=== PATIENT | female | born 1955 | race Caucasian/White ===

== ENCOUNTER 2017-11-04 08:51 | Emergency (ER) | payer BC ==
--- NOTE | 2017-11-04 09:43 | UC ---
Respiratory Complaint HPI - HPI Summary HPI Summary: 3-4 days of chills, chest pain, cough, achiness and headache. No fever. - History of Current Complaint Stated Complaint: RESPIRATORY Time Seen by Provider: 11/04/17 09:33 Hx Obtained From: Patient, Family/Registered Dietitian Hx Last Menstrual Period: ~1999 Onset/Duration: Gradual Onset, Lasting Days, Still Present Timing: Constant Severity Initially: Moderate Severity Currently: Moderate Character: Cough: Nonproductive Aggravating Factors: Deep Breaths, Recumbent Position Alleviating Factors: Upright Position, Spontaneous Resolution Associated Signs And Symptoms: Positive: Chills, Pleuritic Chest Pain, URI, Nasal Congestion, Hoarseness. Negative: Hemoptysis, Calf Pain, Calf Swelling - Allergies/Home Medications Allergies/Adverse Reactions: Allergies Allergy/AdvReac Type Severity Reaction Status Date / Time No Known Allergies Allergy Verified 05/13/16 18:24 Home Medications: Home Medications Cholecalciferol TAB* [Vitamin D TAB*] 11/04/17 [History] PMH/Surg Hx/FS Hx/Imm Hx Previously Healthy: No - htn. SHe denies chronic lung conditions. - Surgical History Surgical History: Yes Surgery Procedure, Year, and Place: hysterectomy cholecystectomy Bilateral arms and hands ganglion cystsT&Aear growth removal. TUBAL LIGATION - Family History Known Family History: Positive: Hypertension - Social History Alcohol Use: Occasionally Substance Use Type: None Smoking Status (MU): Never Smoked Tobacco - Immunization History Most Recent Tetanus Shot: UNKNOWN Review of Systems Constitutional: Chills, Fatigue Respiratory: Cough Cardiovascular: Chest Pain All Other Systems Reviewed And Are Negative: Yes Physical Exam Triage Information Reviewed: Yes Appearance: Well-Appearing - appears to have malaise but non toxic., No Pain Distress, Well-Nourished Vital Signs Reviewed: Yes Eye Exam: Normal Eyes: Positive: Conjunctiva Clear ENT: Positive: Hearing grossly normal, Pharynx normal, Nasal congestion, TMs normal, Uvula midline. Negative: TM bulging, TM dull, TM red, Tonsillar swelling, Tonsillar exudate, Trismus, Muffled voice Neck: Positive: Supple, Nontender, No Lymphadenopathy Respiratory: Positive: Lungs clear, Normal breath sounds, No respiratory distress, No accessory muscle use, Rhonchi. Negative: Respiratory distress, Decreased breath sounds, Accessory muscle use, Crackles, Wheezing Cardiovascular: Positive: No Murmur, Pulses Normal, Brisk Capillary Refill Abdomen Description: Positive: No Organomegaly, Soft. Negative: Distended, Guarding Musculoskeletal: Positive: ROM Intact, No Edema Neurological: Positive: Alert, Muscle Tone Normal. Negative: Fatigued Psychological: Positive: Age Appropriate Behavior Skin: Positive: rashes Respiratory Course/Dx - Course Course Of Treatment: Felipe rhonchi. 3-4 days of symptoms. No rales and no hemoptysis. This is most c/w influenza and viral pneumonia. SHe will return if symptoms worsen. - Differential Dx/Diagnosis Provider Diagnoses: influenza Discharge - Discharge Plan Condition: Good Disposition: HOME Prescriptions: Oseltamivir CAP* [Tamiflu CAP*] 75 mg PO BID #10 cap Patient Education Materials: Influenza (ED) Referrals: Shawna Castro MD [Primary Care Provider] - Additional Instructions: Try decongestants and tylenol. Return for any worsening.
[2017-11-04 09:51] VITALS: BP 148/64
--- NOTE | 2017-11-04 10:06 | RAD ---
HISTORY: Cough, chest pain, pneumonia COMPARISONS: June 27, 2003 VIEWS: 4: Frontal dual-energy and lateral views of the chest. FINDINGS: CARDIOMEDIASTINAL SILHOUETTE: The cardiomediastinal silhouette is normal. ALIS: The alis are normal. PLEURA: The costophrenic angles are sharp. No pleural abnormalities are noted. LUNG PARENCHYMA: There is minimal linear opacification of left lung base. ABDOMEN: The upper abdomen is clear. There is no subphrenic gas. BONES AND SOFT TISSUES: No bone or soft tissue abnormalities are noted. OTHER: None. IMPRESSION: MINIMAL LINEAR ATELECTASIS OF THE LEFT LUNG BASE.
== END 2017-11-04 10:25 | disposition home or self-care (01) ==
LOC: UCCORT 08:51
DX: J11.1 Influenza due to unidentified influenza virus with other respiratory manifestations (principal)
CPT/HCPCS: 71046; 87502; 99211; G0463

== ENCOUNTER 2018-01-11 20:09 | Emergency (ER) | payer BC ==
--- OUTSIDE RECORDS SUMMARY | 2018-01-11 20:37 | XMS REPORT ---
:1955 External Reference #:[id number] Author Organization [facility] Address [address] [place] [address] Phone [phone] Care Team Providers Name Role Phone Shawna Castro MD Care Team Information Internet Webmaster Unavailable Shawna Castro MD Primary Care Physician Unavailable Payers Type Date Identification Numbers Payment Provider Subscriber Commercial Policy Number: [id number] [facility] [employer] PayID: [id number] [address] [address] [place] [address] Problems Date Description Provider Status Onset: 12/09/2015 Mixed hyperlipidemia Active Onset: 12/05/2015 Adult health examination Shawna Castro M.D. Active Onset: 12/05/2015 Hyperlipidemia Shawna Castro M.D. Active Onset: 12/05/2015 Obesity Shawna Castro M.D. Active Onset: 01/10/2016 Vitamin D deficiency Shawna Castro M.D. Active Onset: 01/10/2016 Taking medication Shawna Castro M.D. Active Onset: 12/04/2016 Localized, primary osteoarthritis Shawna Castro M.D. Active Onset: 12/04/2016 Polyarthropathy Shawna Castro M.D. Active Onset: 12/19/2016 Shoulder joint pain Shawna Castro M.D. Active Onset: 12/19/2016 Knee pain Shawna Castro M.D. Active Onset: 12/19/2016 Abnormal glucose level Shawna Castro M.D. Active Onset: 06/16/2017 Otitis media Shawna Castro M.D. Active Onset: 06/16/2017 Acute sinusitis Shawna Castro M.D. Active Onset: 06/16/2017 Family problems Shawna Castro M.D. Active Onset: 10/14/2017 Elevated blood-pressure reading Shawna Castro M.D. Active without diagnosis of hypertension Onset: 10/14/2017 Incomplete emptying of bladder Shawna Castro M.D. Active Onset: 10/27/2017 Mixed urinary incontinence Luis Barillas M.D. Active Onset: 12/15/2017 Moderate recurrent major depression Nathanael Li M.D. Active Family History Date Family Member(s) Problem(s) Comments Father due to Suicide () Mother due to Colon Cancer () Mother Cancer First Brother Kidney Disease First Sister due to Septicemia () - age 68 First Sister Kidney Disease Social History Type Date Description Comments Marital Status Lives With Occupation Retired Cigarette Use Never Smoked Cigarettes ETOH Use 04/16/2016 Currently consumes alcohol socially Smoking Patient denies history of smoking Recreational Drug Use Denies Drug Use Daily Caffeine Does Not Consume Caffeine Allergies, Adverse Reactions, Alerts Date Description Reaction Status Severity Comments 12/05/2015 NKDA active Medications Medication Date Status Form Strength Qnty SIG Indications Ordering Provider Ibuprofen 200 Active Tablets 200mg 90tabs 1-2 tabs Andras 018 by mouth Gloria, three M.D. times a day as needed Vitamin D3 Active Tablets 5000Unit 180tab 2 By Andras 017 s Mouth Gloria, Every M.D. Day Valacyclovir 0 Active Tablets 1gm 4tabs 2 gm by Andras HCL 000 mouth Gloria, every 12 M.D. hours x 2 doses as needed cold sores Amoxicillin Hx Tablets 500mg 30tabs take 1 J01.90 Andras 017 - tablet Gloria, daily 3 M.D. 017 times a day for [address] Hx Tablets DR 375mg 60tabs 1 tablet Andras 017 - by mouth Gloria, twice a M.D. 018 day as needed for pain No Active Hx Unknown Medications 017 - [address] 03/30/[address] 375mg 30tabs 1 tablet M17.12 Andras 017 - by mouth Gloria, twice a M.D. day Meloxicam Hx Tablets 15mg 30tabs 1 by Lenny 016 - mouth Pom[place], every M.D. 017 day c food Phentermine HCL /0 Hx Capsules 37.5mg 30caps 1 tablet Andras 000 - by mouth Gloria, every M.D. day Atorvastatin /0 Hx Tablets 10mg 1 by Unknown Calcium 000 - mouth every day Valacyclovir 0 Hx Tablets 1gm 1 by Unknown HCL 000 - mouth three 017 times a day as needed Co Q-10 0 Hx Capsules 100mg 1 by Unknown 000 - mouth every day Vitamin D2 0 Hx Tablets 2000Unit 1 by Unknown 000 - mouth every day Vital Signs Date Vital Result Comment 12/15/2017 BP Systolic Sitting Right Arm 140 mmHg BP Diastolic Sitting Right Arm 80 mmHg Body Temperature 97.7 F Heart Rate 75 /min Respiratory Rate 18 /min Height 63 inches 5'3" Weight 270.00 lb BMI (Body Mass Index) 47.8 kg/m2 BSA (Body Surface Area) 2.20 m2 [place] body weight in kilograms 52 O2 % BldC Oximetry 95 % Ra 10/27/2017 BP Systolic 143 mmHg BP Diastolic 93 mmHg Body Temperature 97.5 F Heart Rate 89 /min Respiratory Rate 16 /min O2 % BldC Oximetry 95 % Pain Level 5 rt shoulder 10/14/2017 BP Systolic Sitting Right Arm 155 mmHg BP Diastolic Sitting Right Arm 85 mmHg Heart Rate 73 /min Height 63 inches 5'3" Weight 273.00 lb BMI (Body Mass Index) 48.4 kg/m2 BSA (Body Surface Area) 2.21 m2 [place] body weight in kilograms 52 O2 % BldC Oximetry 92 % ra 06/16/2017 BP Systolic Sitting Right Arm 149 mmHg lower arm BP Diastolic Sitting Right Arm 89 mmHg lower arm Body Temperature 98.6 F Heart Rate 80 /min Respiratory Rate 24 /min Weight 267.00 lb O2 % BldC Oximetry 92 % ra 03/24/2017 BP Systolic Sitting Left Arm 140 mmHg BP Diastolic Sitting Left Arm 75 mmHg Body Temperature 98.2 F Heart Rate 88 /min Respiratory Rate 14 /min Height 62.5 inches 5'2.50" Weight 263.25 lb BMI (Body Mass Index) 47.4 kg/m2 BSA (Body Surface Area) 2.16 m2 [place] body weight in kilograms 51 O2 % BldC Oximetry 96 % 12/19/2016 BP Systolic 138 mmHg BP Diastolic 70 mmHg Heart Rate 78 /min Respiratory Rate 16 /min Height 62.5 inches 5'2.50" Weight 265.00 lb BMI (Body Mass Index) 47.7 kg/m2 BSA (Body Surface Area) 2.17 m2 O2 % BldC Oximetry 97 % 12/04/2016 BP Systolic Sitting Right Arm 132 mmHg BP Diastolic Sitting Right Arm 72 mmHg Height 62.5 inches 5'2.50" Weight 262.50 lb BMI (Body Mass Index) 47.2 kg/m2 BSA (Body Surface Area) 2.16 m2 04/16/2016 BP Systolic Sitting Left Arm 138 mmHg BP Diastolic Sitting Left Arm 83 mmHg Heart Rate 76 /min Height 62.5 inches 5'2.50" Weight 262.00 lb BMI (Body Mass Index) 47.2 kg/m2 BSA (Body Surface Area) 2.16 m2 [place] body weight in kilograms 51 01/10/2016 BP Systolic 130 mmHg BP Diastolic 80 mmHg Heart Rate 76 /min Height 62.5 inches 5'2.50" Weight 252.00 lb BMI (Body Mass Index) 45.4 kg/m2 BSA (Body Surface Area) 2.12 m2 12/05/2015 BP Systolic 142 mmHg BP Diastolic 83 mmHg Heart Rate 83 /min Height 62.5 inches 5'2.50" Weight 250.00 lb BMI (Body Mass Index) 45.0 kg/m2 BSA (Body Surface Area) 2.11 m2 Results Test Date Test Result H/L Range Note Rapid Influenza A & 11/04/2017 Influenza A Molecular NEGATIVE Negative 1 B Molecular Influenza B Molecular POSITIVE Negative Ua RFX Micro & Culture II 10/23/2017 Urine Color YELLOW Yellow 2 Urine Clarity TURBID Clear 2 Urine Glucose - Dipstick NEGATIVE mg/dL Negative 2 Urine Bilirubin - Dipstick NEGATIVE Negative 2 Urine Ketone NEGATIVE mg/dL Negative 2 Urine Specific [place] 1.025 1.010-1.030 2 Urine Blood NEGATIVE Negative 2 Urine PH 6.0 Low 6.5-7.5 2 Urine Protein - Dipstick NEGATIVE mg/dL Negative 2 Urine Urobilinogen - Dipstick 0.2 E.U./dL 0.2-1.0 2 Urine Nitrite - Dipstick NEGATIVE Negative 2 Urine Leuk Esterase NEGATIVE Negative 2 Source: URINE, CLEAN CAT <SEE NOTE> 2, 3 Laboratory test finding 10/08/2017 LDL Cholesterol Direct 154 mg/dL 4 TSH (Thyroid Stimulating Horm) 4.60 mcIU/mL 0.34-5.60 Urinalysis Profile 10/08/2017 Urine Color Shara Urine Appearance Cloudy Urine Specific [place] 1.021 1.010-1.030 Urine pH 6.0 5-9 Urine Urobilinogen Negative Negative Urine Ketones Negative Negative Urine Protein Negative Negative Urine Leukocytes Negative Negative Urine Blood 1+ Negative Urine Nitrite Negative Negative Urine Bilirubin Negative Negative Urine Glucose Negative Negative Urine White Blood Cell Trace(0-5/hpf) Absent Urine Red Blood Cell 1+(3-5/hpf) Absent Urine Bacteria Absent Absent Urine Squamous Epithelial Cell Present Absent Laboratory test finding 10/08/2017 Vitamin D Total 25(Oh) 23.7 ng/mL 20- 50 Hemoglobin A1c 5.7 % High 4.0-5.6 5 HDL Cholesterol 54.3 mg/dL 6 Triglycerides 118 mg/dL 7 Comprehensive Metabolic Panel 10/08/2017 Sodium 138 mmol/L 133-145 Potassium 4.4 mmol/L 3.5-5.0 Chloride 105 mmol/L 101-111 Co2 Carbon Dioxide 25 mmol/L 22-32 Anion Gap 8 mmol/L 2-11 Glucose 105 mg/dL High 70-100 Blood Urea Nitrogen 22 mg/dL 6-24 Creatinine 0.67 mg/dL 0.51-0.95 BUN/Creatinine Ratio 32.8 High 8-20 Calcium 9.3 mg/dL 8.6-10.3 Total Protein 6.2 g/dL Low 6.4-8.9 Albumin 3.8 g/dL 3.2-5.2 Globulin 2.4 g/dL 2-4 Albumin/Globulin Ratio 1.6 1-3 Total Bilirubin 0.50 mg/dL 0.2-1.0 Alkaline Phosphatase 81 U/L 34-104 Alt 23 U/L 7-52 Ast 11 U/L Low 13-39 Egfr Non- 89.2 >60 Egfr 114.7 >60 8 CBS W/Automated Diff 10/08/2017 White Blood Count 5.6 10^3/uL 3.5-10.8 Red Blood Count 4.90 10^6/uL 4.0-5.4 Hemoglobin 14.0 g/dL 12.0-16.0 Hematocrit 42 % 35-47 Mean Corpuscular Volume 85 fL 80-97 Mean Corpuscular Hemoglobin 29 pg 27-31 Mean Corpuscular HGB Conc 34 g/dL 31-36 Red Cell Distribution Width 14 % 10.5-15 Platelet Count 206 10^3/uL 150-450 Mean Platelet Volume 9 um3 7.4-10.4 Abs Neutrophils 3.1 10^3/uL 1.5-7.7 Abs Lymphocytes 2.0 10^3/uL 1.0-4.8 Abs Monocytes 0.3 10^3/uL 0-0.8 Abs Eosinophils 0.1 10^3/uL 0-0.6 Abs Basophils 0.1 10^3/uL 0-0.2 Abs Nucleated RBC 0 10^3/uL Granulocyte % 55.4 % 38-83 Lymphocyte % 36.2 % 25-47 Monocyte % 5.8 % 1-9 Eosinophil % 1.5 % 0-6 Basophil % 1.1 % 0-2 Nucleated Red Blood Cells % 0 Laboratory test finding 06/15/2017 Thyroid Stim Hormone 3.90 uIU/mL 0.30- 4.20 9 Free T3 2.50 pg/mL 2.18-3.98 9 Free T4 0.91 ng/dL 0.76-1.46 9 Laboratory test 06/15/2017 Vitamin B1 179.2 nmol/L 66.5-200.0 9, 10 finding (Thiamine),WB Laboratory test 05/29/2017 Hemoglobin A1c 5.7 % Less than 6.0 11 finding LDL Cholesterol Direct 141 mg/dL 12 Folate 7.83 ng/mL >3.99 Vitamin B12 561 pg/mL 180-914 13 Laboratory test finding 05/29/2017 Magnesium 1.8 mg/dL Low 1.9-2.7 CMP Panel (14 Test) 05/29/2017 Sodium 139 mmol/L 133-145 Potassium 4.3 mmol/L 3.5-5.0 Chloride 107 mmol/L 101-111 Co2 Carbon Dioxide 26 mmol/L 22-32 Anion Gap 6 mmol/L 2-11 Glucose 100 mg/dL 70-100 Blood Urea Nitrogen 26 mg/dL High 6-24 Creatinine 0.71 mg/dL 0.51-0.95 BUN/Creatinine Ratio 36.6 High 8-20 Calcium 9.1 mg/dL 8.6-10.3 Total Protein 6.1 g/dL Low 6.4-8.9 Albumin 3.6 g/dL 3.2-5.2 Globulin 2.5 g/dL 2-4 Albumin/Globulin Ratio 1.4 1-3 Total Bilirubin 0.50 mg/dL 0.2-1.0 Alkaline Phosphatase 82 U/L 34-104 Alt 14 U/L 7-52 Ast 10 U/L Low 13-39 Egfr Non- 83.7 >60 Egfr 107.6 >60 14 CBC W/Auto Diff & PLT 05/29/2017 White Blood Count 5.7 10^3/uL 3.5- 10.8 Red Blood Count 4.85 10^6/uL 4.0-5.4 Hemoglobin 13.8 g/dL 12.0-16.0 Hematocrit 42 % 35-47 Mean Corpuscular Volume 86 fL 80-97 Mean Corpuscular Hemoglobin 28 pg 27-31 Mean Corpuscular HGB Conc 33 g/dL 31-36 Red Cell Distribution Width 14 % 10.5-15 Platelet Count 199 10^3/uL 150-450 Mean Platelet Volume 9 um3 7.4-10.4 Abs Neutrophils 3.2 10^3/uL 1.5-7.7 Abs Lymphocytes 2.0 10^3/uL 1.0-4.8 Abs Monocytes 0.3 10^3/uL 0-0.8 Abs Eosinophils 0.1 10^3/uL 0-0.6 Abs Basophils 0.1 10^3/uL 0-0.2 Abs Nucleated RBC 0 10^3/uL Granulocyte % 56.1 % 38-83 Lymphocyte % 36.0 % 25-47 Monocyte % 5.5 % 1-9 Eosinophil % 1.5 % 0-6 Basophil % 0.9 % 0-2 Nucleated Red Blood Cells % 0 Laboratory test finding 05/29/2017 Triglycerides 102 mg/dL 15 Laboratory test finding 05/29/2017 Vitamin D Total 25(Oh) 42.4 ng/mL 20- 50 HDL Cholesterol 51.4 mg/dL 16 Laboratory test finding 12/11/2016 Triglycerides 109 mg/dL 17 LDL Cholesterol Direct 155 mg/dL 18 Anti Nuclear Antibody 0.6 U 19 Laboratory test finding 12/11/2016 Vitamin D Total 25(Oh) 23.3 ng/mL Low 30-50 Uric Acid 4.2 mg/dL 2.3-6.6 Rheumatoid Factor <15 IU/mL <15 20 Creatine Kinase 55 U/L 10-223 HDL Cholesterol 49.0 mg/dL 21 Laboratory test finding 12/11/2016 Magnesium 1.9 mg/dL 1.9-2.7 Urinalysis Profile 12/11/2016 Urine Color Yellow Urine Appearance Clear Urine Specific [place] 1.028 1.010-1.030 Urine pH 5.0 5-9 Urine Urobilinogen Negative Negative Urine Ketones Negative Negative Urine Protein Negative Negative Urine Leukocytes Negative Negative Urine Blood Negative Negative Urine Nitrite Negative Negative Urine Bilirubin Negative Negative Urine Glucose Negative Negative Laboratory test finding 12/11/2016 Urine Culture SEE RESULT BELOW 22 CBS W/Automated Diff 12/11/2016 White Blood Count 5.6 10^3/uL 3.5-10.8 Red Blood Count 4.87 10^6/uL 4.0-5.4 Hemoglobin 13.7 g/dL 12.0-16.0 Hematocrit 41 % 35-47 Mean Corpuscular Volume 85 fL 80-97 Mean Corpuscular Hemoglobin 28 pg 27-31 Mean Corpuscular HGB Conc 33 g/dL 31-36 Red Cell Distribution Width 14 % 10.5-15 Platelet Count 201 10^3/uL 150-450 Mean Platelet Volume 9 um3 7.4-10.4 Abs Neutrophils 2.9 10^3/uL 1.5-7.7 Abs Lymphocytes 2.3 10^3/uL 1.0-4.8 Abs Monocytes 0.3 10^3/uL 0-0.8 Abs Eosinophils 0.1 10^3/uL 0-0.6 Abs Basophils 0 10^3/uL 0-0.2 Abs Nucleated RBC 0 10^3/uL Granulocyte % 51.5 % 38-83 Lymphocyte % 40.1 % 25-47 Monocyte % 5.8 % 1-9 Eosinophil % 1.9 % 0-6 Basophil % 0.7 % 0-2 Nucleated Red Blood Cells % 0 Comprehensive Metabolic Panel 12/11/2016 Sodium 140 mmol/L 133-145 Potassium 4.2 mmol/L 3.5-5.0 Chloride 107 mmol/L 101-111 Co2 Carbon Dioxide 26 mmol/L 22-32 Anion Gap 7 mmol/L 2-11 Glucose 102 mg/dL High 70-100 Blood Urea Nitrogen 30 mg/dL High 6-24 Creatinine 0.70 mg/dL 0.51-0.95 BUN/Creatinine Ratio 42.9 High 8-20 Calcium 9.2 mg/dL 8.6-10.3 Total Protein 6.2 g/dL Low 6.4-8.9 Albumin 3.8 g/dL 3.2-5.2 Globulin 2.4 g/dL 2-4 Albumin/Globulin Ratio 1.6 1-3 Total Bilirubin 0.50 mg/dL 0.2-1.0 Alkaline Phosphatase 85 U/L 34-104 Alt 16 U/L 7-52 Ast 12 U/L Low 13-39 Egfr Non- 85.1 >60 Egfr 109.4 >60 23 LDL Cholesterol Profile 05/20/2016 Triglycerides 112 mg/dL 24 Cholesterol 249 mg/dL 25 HDL Cholesterol 52.1 mg/dL 26 LDL Cholesterol 175 mg/dL 27 Laboratory test finding 05/20/2016 Vitamin D Total 25(Oh) 23.1 ng/mL Low 30-50 Creatine Kinase 44 U/L 10-223 Liver Function Tests 05/20/2016 Total Protein 6.3 g/dL Low 6.4-8.9 Albumin 3.8 g/dL 3.2-5.2 Globulin 2.5 g/dL 2-4 Albumin/Globulin Ratio 1.5 1-3 Total Bilirubin 0.50 mg/dL 0.2-1.0 Direct Bilirubin 0.10 mg/dL 0.03-0.18 Indirect Bilirubin 0.4 mg/dL 0.3-1.0 Alkaline Phosphatase 80 U/L 34-104 Alt 16 U/L 7-52 Ast 10 U/L Low 13-39 Laboratory test finding 05/20/2016 TSH (Thyroid Stimulating 4.20 mcIU/mL 0.34-5.60 Horm) LDL Cholesterol Direct 168 mg/dL 28 Laboratory test finding 01/09/2016 Glucose 91 mg/dL 70-100 Alt 20 U/L 7-52 Comprehensive Metabolic Panel 01/09/2016 Sodium 139 mmol/L 133-145 Potassium 4.4 mmol/L 3.5-5.0 Chloride 104 mmol/L 101-111 Co2 Carbon Dioxide 30 mmol/L 22-32 Anion Gap 5 mmol/L 2-11 Blood Urea Nitrogen 20 mg/dL 6-24 Creatinine 0.72 mg/dL 0.51-0.95 BUN/Creatinine Ratio 27.8 High 8-20 Calcium 9.4 mg/dL 8.6-10.3 Total Protein 6.6 g/dL 6.4-8.9 Albumin 4.1 g/dL 3.2-5.2 Globulin 2.5 g/dL 2-4 Albumin/Globulin Ratio 1.6 1-3 Total Bilirubin 0.60 mg/dL 0.2-1.0 Alkaline Phosphatase 85 U/L 34-104 Ast 12 U/L Low 13-39 Egfr Non- 82.6 >60 Egfr 106.3 >60 29 Laboratory test finding 01/09/2016 Vitamin D Total 25(Oh) 22.5 ng/mL Low 30-50 LDL Cholesterol Direct 164 mg/dL 30 TSH (Thyroid Stimulating Horm) 4.56 ?IU/mL 0.34-5.60 Free T3 3.20 pg/mL 2.5-3.9 Free T4 0.73 ng/dL 0.61-1.12 Laboratory test finding 01/09/2016 Homocysteine 10 mcmol/L 31 Urine Screen 01/09/2016 Urine Color Yellow Urine Appearance Cloudy Urine Specific [place] 1.017 1.010-1.030 Urine pH 6.0 5-9 Urine Urobilinogen Negative Negative Urine Ketones Negative Negative Urine Protein Negative Negative Urine Leukocytes Negative Negative Urine Blood Negative Negative Urine Nitrite Negative Negative Urine Bilirubin Negative Negative Urine Glucose Negative Negative Laboratory test finding 01/09/2016 Creatine Kinase 40 U/L 10-223 1 Senior Technical Trainer: [id number] 2 R39.14 3 URINE, CLEAN CATCH 4 Desirable: <100 Near Optimal: 100-129 Borderline High: 130-159 High: 160-189 Very High: >189 5 Therapeutic target for the treatment of diabetes mellitus patients is <7% HBA1C, and in selective patients <6.0%. Please refer to [place] [employer] Association diabetic care guidelines for further information. 6 Low: <40 Desirable: 40-60 High: >60 7 Desirable: <150 Borderline High: 150-199 High: 200-499 Very High: >500 8 Because ethnic data is not always readily available, this report includes an eGFR for both -Americans and non- Americans. The National Kidney Disease Education Program (NKDEP) does not endorse the use of the MDRD equation for patients that are not between the ages of 18 and 70, are , have extremes of body size, muscle mass, or nutritional status, or are non- or non-. According to the National Kidney Foundation, irrespective of diagnosis, the stage of the disease is based on the level of kidney function: Stage Description GFR(mL/min/1.73 m(2)) 1 Kidney damage with normal or decreased GFR 90 2 Kidney damage with mild decrease in GFR 60-89 3 Moderate decrease in GFR 30-59 4 Severe decrease in GFR 15-29 5 Kidney failure <15 (or dialysis) 9 E66.01,E55.9,E78.5,Z79.899,R73.09 10 This test was developed and its performance characteristics determined by [employer]. It has not been cleared or approved by the Food and Drug Administration. Performed at: - [facility] [address] [id number] Roll Tester: Monty Blackburn MD, Phone: [phone] 11 Therapeutic target for the treatment of diabetes Mellitus patients is <7% HBA1C, and in selective patients <6.0%.Please refer to [place] [employer] Association Diabetic care guidelines for further information. 12 Desirable: <100 mg/dL Near Optimal: 100-129 mg/dL Borderline High: 130-159 mg/dL High: 160-189 mg/dL Very High: >189 mg/dL 13 Normal Range 180 to 914 Indeterminate Range 145 to 180 Deficient Range <145 14 Because ethnic data is not always readily available, this report includes an eGFR for both -Americans and non- Americans. The National Kidney Disease Education Program (NKDEP) does not endorse the use of the MDRD equation for patients that are not between the ages of 18 and 70, are , have extremes of body size, muscle mass, or nutritional status, or are non- or non-. According to the National Kidney Foundation, irrespective of diagnosis, the stage of the disease is based on the level of kidney function: Stage Description GFR(mL/min/1.73 m(2)) 1 Kidney damage with normal or decreased GFR 90 2 Kidney damage with mild decrease in GFR 60-89 3 Moderate decrease in GFR 30-59 4 Severe decrease in GFR 15-29 5 Kidney failure <15 (or dialysis) 15 Desirable <150 Borderline high 150-199 High 200-499 Very High >500 16 Low <40 Desirable: 40-60 High: >60 17 Desirable <150 Borderline high 150-199 High 200-499 Very High >500 18 Desirable: <100 mg/dL Near Optimal: 100-129 mg/dL Borderline High: 130-159 mg/dL High: 160-189 mg/dL Very High: >189 mg/dL 19 REFERENCE VALUE <=1.0 (Negative) Test Performed by: [place] [address] 20 Test Performed by: [place] [address] 21 Low <40 Desirable: 40-60 High: >60 22 SEE RESULT BELOW Name: SHRADDHA GREEN : [address]: Shawna Castro MD Acct: [id number] Unit: [id number] AGE: 61 Location: [facility] Re12/11/16 SEX: F Status: REG REF SPEC: [id number] RICHIE: 12/11/16-[address]: Shawna Castro MD REQ: [id number] RECD: 12/11/16 STATUS: COMP _ SOURCE: URINE SPDESC: ORDERED: Urine Culture QUERIES: Urine Source: Clean Catch Procedure Result Reported Site Urine Culture Final 12/12/16- 1354 ML No growth of clinically significant organisms * ML - MAIN LAB ([facility]) . END OF REPORT * ML=Testing performed at Main Lab DEPARTMENT OF PATHOLOGY, [address] [place] [address] Mario Martinez M.D. Director [facility] # [id number] 23 Because ethnic data is not always readily available, this report includes an eGFR for both -Americans and non- Americans. The National Kidney Disease Education Program (NKDEP) does not endorse the use of the MDRD equation for patients that are not between the ages of 18 and 70, are , have extremes of body size, muscle mass, or nutritional status, or are non- or non-. According to the National Kidney Foundation, irrespective of diagnosis, the stage of the disease is based on the level of kidney function: Stage Description GFR(mL/min/1.73 m(2)) 1 Kidney damage with normal or decreased GFR 90 2 Kidney damage with mild decrease in GFR 60-89 3 Moderate decrease in GFR 30-59 4 Severe decrease in GFR 15-29 5 Kidney failure <15 (or dialysis) 24 Desirable <150 Borderline high 150-199 High 200-499 Very High >500 25 Desirable <200 Borderline high 200-239 High >239 26 Low <40 Desirable: 40-60 High: >60 27 Desirable: <100 mg/dL Near Optimal: 100-129 mg/dL Borderline High: 130-159 mg/dL High: 160-189 mg/dL Very High: >189 mg/dL 28 Desirable: <100 mg/dL Near Optimal: 100-129 mg/dL Borderline High: 130-159 mg/dL High: 160-189 mg/dL Very High: >189 mg/dL 29 Because ethnic data is not always readily available, this report includes an eGFR for both -Americans and non- Americans. The National Kidney Disease Education Program (NKDEP) does not endorse the use of the MDRD equation for patients that are not between the ages of 18 and 70, are , have extremes of body size, muscle mass, or nutritional status, or are non- or non-. According to the National Kidney Foundation, irrespective of diagnosis, the stage of the disease is based on the level of kidney function: Stage Description GFR(mL/min/1.73 m(2)) 1 Kidney damage with normal or decreased GFR 90 2 Kidney damage with mild decrease in GFR 60-89 3 Moderate decrease in GFR 30-59 4 Severe decrease in GFR 15-29 5 Kidney failure <15 (or dialysis) 30 Desirable: <100 mg/dL Near Optimal: 100-129 mg/dL Borderline High: 130-159 mg/dL High: 160-189 mg/dL Very High: >189 mg/dL 31 REFERENCE VALUE <=13 (Fasting) Test Performed by: [place] [id number] Transportation Solutions Manager: Monty Boyle II, M.D., Ph.D. Procedures Date CPT Code Description Status 07/16/2017 99668 Eye Exam New Patient Comprehensive Completed 04/16/2016 69860 Radiology, Knee 3 Views Completed 04/16/2016 01511 Radiology, Knee 3 Views Completed 07/09/2015 Mammogram Completed 09/07/2014 Colonoscopy Completed 04/10/2014 Colonoscopy Completed Encounters Type Date Location Provider CPT E/M Dx Office Visit 12/15/2017 Primary Care Office Nathanael Martinezalysha, 77019 F33.1 2:00p M.Edvin Office Visit 10/27/2017 Urology Luis Barillas M.D. 42538 N39.46 11:30a Office Visit 10/14/2017 Primary Care Office Shawna Castro M.D. 02471 Z79.899 10:40a E78.5 E55.9 R03.0 R39.14 R73.09 Office Visit 06/16/2017 11:20a Primary Care Office Shawna Castro M.D. 34167 H66.91 J01.90 Z63.0 Office Visit 03/24/2017 9:40a Primary Care Office Shawna Castro M.D. 28503 E66.9 M17.12 R73.09 E55.9 Office Visit 12/19/2016 1:00p Primary Care Office Shawna Csatro M.D. 64417 M25.511 E55.9 E78.5 M25.562 Z79.899 R73.09 Office Visit 12/04/2016 8:40a Primary Care Office Shawna Castro M.D. 38796 E55.9 E78.5 M17.12 Z79.899 Office Visit 04/16/2016 10:00a Orthopaedic Office Salma De La Vega, 28537 M25.562 [facility] M17.12 Office Visit 01/10/2016 1:00p Primary Care Office Shawna Castro M.D. 58603 E78.5 E55.9 Z79.899 E66.9 Plan of Care Future Appointment(s):01/12/2018 10:40 am - Shawna Castro M.D. at Primary [facility] Royjjd4507/22/2018 1:30 pm - Shawn Henson MD at [facility]ethtlfkeuq82/10/2018 - Nathanael Li M.D.F33.1 Major depressive disorder, recurrent, moderate
[2018-01-11 20:50] VITALS: BP 97/75
--- NOTE | 2018-01-11 21:04 | UC ---
Skin Complaint HPI - HPI Summary HPI Summary: Pt c/o gradual onset of right finger pain and swelling along cuticle. Pt states that she bites her nails and now it is infected. - History of Current Complaint Chief Complaint: UCUpperExtremity Time Seen by Provider: 01/11/18 20:37 Stated Complaint: RIGHT INDEX FINGER PAIN Hx Obtained From: Patient Hx Last Menstrual Period: ~1999 ?: No Onset/Duration: Gradual Onset, Lasting Days, Still Present, Worse Since - onset Skin Exposure Onset/Duration: Days Ago Timing: Constant Onset Severity: Mild Current Severity: Moderate Pain Intensity: 6 Location: Discrete - right index finger Character: Swelling, Pain, Redness, Raised Aggravating Factor(s): Touch Alleviating Factor(s): Nothing Associated Signs & Symptoms: Positive: Bruising, Tenderness - Allergy/Home Medications Allergies/Adverse Reactions: Allergies Allergy/AdvReac Type Severity Reaction Status Date / Time No Known Allergies Allergy Verified 05/13/16 18:24 Home Medications: Home Medications Acetaminophen 650 mg PO Q6H 01/11/18 [History Confirmed 01/11/18] Citalopram Hydrobromide [Celexa] 10 mg PO DAILY 01/11/18 [History Confirmed 03/24] Review of Systems Constitutional: Negative Skin: Bruising - right distal index finger, Other - swelling Eyes: Negative ENT: Negative Respiratory: Negative Cardiovascular: Negative Gastrointestinal: Negative Genitourinary: Negative Motor: Negative Neurovascular: Negative Musculoskeletal: Edema - distal right index finger along cuticle Neurological: Negative Psychological: Negative Is Patient Immunocompromised?: No All Other Systems Reviewed And Are Negative: Yes PMH/Surg Hx/FS Hx/Imm Hx Previously Healthy: Yes - Surgical History Surgical History: Yes Surgery Procedure, Year, and Place: hysterectomy cholecystectomy Bilateral arms and hands ganglion cystsT&Aear growth removal. TUBAL LIGATION - Family History Known Family History: Positive: Hypertension - Social History Occupation: Retired Lives: With Family Alcohol Use: Occasionally Substance Use Type: None Smoking Status (MU): Never Smoked Tobacco Have You Smoked in the Last Year: No - Immunization History Most Recent Tetanus Shot: UNKNOWN Physical Exam Triage Information Reviewed: Yes Appearance: Well-Appearing Vital Signs: Initial Vital Signs Temp 98.9 F 01/11/18 20:41 Pulse 69 01/11/18 20:41 Resp 18 01/11/18 20:41 BP 97/75 01/11/18 20:41 Pulse Ox 98 01/11/18 20:41 Vital Signs Reviewed: Yes Eye Exam: Normal ENT Exam: Other ENT: Positive: Hearing grossly normal Neck exam: Normal Respiratory: Positive: No respiratory distress Musculoskeletal Exam: Other Musculoskeletal: Positive: Edema @ - distal right index fingerlateral aspect of cuticle Neurological Exam: Normal Psychological Exam: Normal Skin Exam: Other - mild swelling and tenderness right index finger, distal aspect, along lateral edge Course/Dx - Course Course Of Treatment: pt refused offer of incision and drainage. - Differential Diagnoses - Skin Complaint Differential Diagnoses: Abscess, Cellulitis, Other - paronychia - Diagnoses Provider Diagnoses: paronychia right index finger Discharge - Sign-Out/Discharge Documenting (check all that apply): Discharge/Admit/Transfer - Discharge Plan Condition: Stable Disposition: HOME Prescriptions: Cephalexin CAP* [Keflex 500 CAP*] 500 mg PO Q8H #21 cap Patient Education Materials: Paronychia (ED) Referrals: Charmaine Arita MD [Primary Care Provider] - If Needed Additional Instructions: Please soak you finger in epsom salt and warm, clean water at least three times per day. Please follow directions on packaging for proportion of salt to water. - Billing Disposition and Condition Condition: STABLE Disposition: HOME
[2018-01-11] MEDS ORDERED: Cephalexin CAP* 500 MG PO ONE (21:06)
[2018-01-11] MEDS ORDERED: Gelfoam 12-7 ADSORBABL SPONGE* 1 EA SPONGE TOPICAL ONE (21:40)
== END 2018-01-11 21:51 | disposition home or self-care (01) ==
LOC: UCCORT 20:09
DX: L03.011 Cellulitis of right finger (principal)
CPT/HCPCS: 99212; A9270-GY; G0463

== ENCOUNTER 2018-03-15 16:41 | Emergency (ER) | payer BC ==
[2018-03-15 17:33] VITALS: BP 142/53
--- NOTE | 2018-03-15 17:56 | ED ---
Abdominal Pain/Female - HPI Summary HPI Summary: 62 yr old female with the complaint of abdominal pain. Onset of pain was last evening, LLQ location, pain 8/10. Worse with process of laying flat or sitting up. No urinary symptoms, NO NVD. She reports she had a REINA BSO in the past. No fever or chills. - History of Current Complaint Chief Complaint: UCAbdominalPain Stated Complaint: ABDOMINAL/BACK PAIN Time Seen by Provider: 03/15/18 17:43 Hx Last Menstrual Period: ~1999 Pain Intensity: 5 Allergies/Adverse Reactions: Allergies Allergy/AdvReac Type Severity Reaction Status Date / Time No Known Allergies Allergy Verified 03/15/18 17:33 Home Medications: Home Medications Ibuprofen TAB* [Advil TAB*] 800 mg PO ONCE 03/15/18 [History Confirmed 03/15/18] PMH/Surg Hx/FS Hx/Imm Hx Endocrine/Hematology History: Reports: Hx Thyroid Disease Denies: Hx Diabetes Cardiovascular History: Reports: Hx Hypercholesterolemia Denies: Hx Hypertension, Hx Pacemaker/ICD GI History: Reports: Other GI Disorders - constipation History: Denies: Hx Renal Disease Sensory History: Reports: Hx Contacts or Glasses Denies: Hx Hearing Aid Opthamlomology History: Reports: Hx Contacts or Glasses Psychiatric History: Reports: Hx Depression Denies: Hx Panic Disorder - Surgical History Surgery Procedure, Year, and Place: hysterectomy,cholecystectomy Bilateral arms and hands ganglion cystsT&Aear growth removal. TUBAL LIGATION Hx Anesthesia Reactions: No - Immunization History Date of Tetanus Vaccine: UNK Date of Influenza Vaccine: UNK Infectious Disease History: No Infectious Disease History: Denies: Traveled Outside the [place] in Last 30 Days - Family History Known Family History: Positive: Hypertension - Social History Occupation: Retired Lives: With Family Alcohol Use: Rare Substance Use Type: Reports: None Smoking Status (MU): Never Smoked Tobacco Have You Smoked in the Last Year: No Review of Systems Constitutional: Negative Positive: Abdominal Pain All Other Systems Reviewed And Are Negative: Yes Physical Exam Triage Information Reviewed: Yes Vital Signs On Initial Exam: Initial Vitals Temp Pulse Resp BP Pulse Ox 97.8 F 71 18 142/53 98 03/15/18 17:26 03/15/18 17:26 03/15/18 17:26 03/15/18 17:26 03/15/18 17:26 Vital Signs Reviewed: Yes Appearance: Positive: Pain Distress Skin: Positive: Warm, Skin Color Reflects Adequate Perfusion Head/Face: Positive: Normal Head/Face Inspection Eyes: Positive: EOMI ENT: Positive: Normal ENT inspection Neck: Positive: Nontender Respiratory/Lung Sounds: Positive: Clear to Auscultation, Breath Sounds Present Cardiovascular: Positive: RRR. Negative: Murmur Abdomen Description: Positive: Other: - Tender LLQ, Worse with reclining process, worse with sitting up. Musculoskeletal: Positive: Strength/ROM Intact Neurological: Positive: Sensory/Motor Intact, Alert, Oriented to Person Place, Time, CN Intact II-III Psychiatric: Positive: Normal AVPU Assessment: Alert - [place] Coma Scale Best Eye Response: 4 - Spontaneous Best Motor Response: 6 - Obeys Commands Best Verbal Response: 5 - Oriented Coma Scale Total: 15 Diagnostics - Vital Signs Vital Signs Temp Pulse Resp BP Pulse Ox 03/15/18 17:26 97.8 F 71 18 142/53 98 - Laboratory Lab Statement: Any lab studies that have been ordered have been reviewed, and results considered in the medical decision making process. Abdominal Pain Fem Course/Dx - Course Course Of Treatment: 62 yr old with LLQ abdominal pain. Neg urine dip. She will go to [facility]. She does not want an ambulance and realizes this could delay her care. She is hemodynamically stable. Her is driving her to [facility]. - Diagnoses Provider Diagnoses: Abdominal pain, left lower quadrant Discharge - Sign-Out/Discharge Documenting (check all that apply): Discharge/Admit/Transfer - Discharge Plan Condition: Good Disposition: TRANS [facility] CARE FAC Patient Education Materials: Acute Abdominal Pain (ED), Hypertension (ED) Referrals: Charmaine Arita MD [Primary Care Provider] - Additional Instructions: You need to go immediately to the [place] [facility] as you have requested to have your drive you, and you have declined an ambulance to facilitate a rapid transfer. - Billing Disposition and Condition Condition: GOOD Disposition: Trans Higher Lvl of Care Fac
== END 2018-03-15 18:40 | disposition short-term general hospital (02) ==
LOC: UCCORT 16:41
DX: R10.32 Left lower quadrant pain (principal)
CPT/HCPCS: 81003; 99212; G0463

== ENCOUNTER → 2018-03-15 19:31 | Emergency (ER) | payer BC ==
[2018-03-15 19:47] VITALS: BP 133/75
== END | disposition left against medical advice (07) ==
LOC: ED 19:31
DX: M54.9 Dorsalgia, unspecified (principal); Z53.21 Procedure and treatment not carried out due to patient leaving prior to being seen by health care provider

== ENCOUNTER 2018-03-16 11:30 | Emergency (ER) | payer BC ==
--- NOTE | 2018-03-16 12:41 | ED ---
Abdominal Pain/Female - HPI Summary HPI Summary: This pt is a 62 y/o female presenting [facility] c/o LLQ abdominal pain since 04: 00 yesterday. Pt states she woke up yesterday with abd pain and describes radiating pain from LLQ to her left flank. She denies urinary symptoms, constipation, diarrhea, fever, nausea, vomiting. Pt was seen at Urgent Care yesterday where she had urinalysis that was negative, and was referred to the ED to rule out diverticulitis. She did come to the ED last night but left before being seen because she states there was a long waiting time. Pt notes she has not eaten today because she was told she needed lab work and CT done today. Pt has taken ibuprofen with no relief. PMHx includes cholecystectomy, hysterectomy, diverticulum. FHx of colon cancer. - History of Current Complaint Chief Complaint: EDAbdPain Stated Complaint: ABD PAIN Time Seen by Provider: 03/16/18 12:32 Hx Obtained From: Patient Hx Last Menstrual Period: ~1999 Onset/Duration: Lasting Days - 1, Still Present Timing: Days - 1 Severity Currently: Moderate Pain Intensity: 6 Pain Scale Used: 0-10 Numeric Location: Discrete At: LLQ Radiates: Yes Radiates to: Flank - left Aggravating Factor(s): Nothing Alleviating Factor(s): Nothing Associated Signs and Symptoms: Negative: Fever, Constipation, Urinary Symptoms, Nausea, Vomiting, Diarrhea Allergies/Adverse Reactions: Allergies Allergy/AdvReac Type Severity Reaction Status Date / Time No Known Allergies Allergy Verified 03/16/18 11:36 Home Medications: Home Medications Boswellia Helen Extract 1 gm MC BID 03/16/18 [History Confirmed 03/16/18] Cholecalciferol TAB* [Vitamin D TAB*] 1,000 unit PO DAILY 03/16/18 [History Confirmed 03/16/18] [place]-3 Fatty Acids/Fish Oil [Fish Oil 1,000 mg Capsule] 1 each PO BID 03/16/18 [History Confirmed 03/16/18] PMH/Surg Hx/FS Hx/Imm Hx Endocrine/Hematology History: Reports: Hx Thyroid Disease Denies: Hx Diabetes Cardiovascular History: Reports: Hx Hypercholesterolemia Denies: Hx Hypertension, Hx Pacemaker/ICD GI History: Reports: Other GI Disorders - constipation History: Denies: Hx Renal Disease Sensory History: Reports: Hx Contacts or Glasses Denies: Hx Hearing Aid Opthamlomology History: Reports: Hx Contacts or Glasses Psychiatric History: Reports: Hx Depression Denies: Hx Panic Disorder - Surgical History Surgery Procedure, Year, and Place: hysterectomy,cholecystectomy Bilateral arms and hands ganglion cystsT&Aear growth removal. TUBAL LIGATION Hx Anesthesia Reactions: No - Immunization History Date of Tetanus Vaccine: UNK Date of Influenza Vaccine: UNK Infectious Disease History: No Infectious Disease History: Denies: Traveled Outside the [place] in Last 30 Days - Family History Known Family History: Positive: Hypertension Family History: FHx of colon cancer. - Social History Alcohol Use: Rare Substance Use Type: Reports: None Smoking Status (MU): Never Smoked Tobacco Have You Smoked in the Last Year: No Review of Systems Negative: Fever, Chills Eyes: Negative ENT: Negative Positive: Abdominal Pain. Negative: Vomiting, Diarrhea, Nausea, Other - constipation Positive: no symptoms reported, see HPI Neurological: Negative All Other Systems Reviewed And Are Negative: Yes Physical Exam - Summary Physical Exam Summary: Appearance: The patient is morbidly obese in no acute distress. Skin: The skin is warm and dry and skin color reflects adequate perfusion. HEENT: The head is normocephalic and atraumatic. The pupils are equal and reactive. The conjunctivae are clear and without drainage. Nares are patent and without drainage. Mouth reveals moist mucous membranes and the throat is without erythema and exudate. The external ears are intact. The ear canals are patent and without drainage. The tympanic membranes are intact. Neck: the neck is supple with full range of motion and non-tender. There are no carotid bruits. There is no neck vein distension. Respiratory: Chest is non-tender. Lungs are clear to auscultation and breath sounds are symmetrical and equal. Cardiovascular: Heart is regular rate and rhythm. There is no murmur or rub auscultated. There is no peripheral edema and pulses are symmetrical and equal. Abdomen: The abdomen is soft. Tenderness on the left lower quadrant. There are normal bowel sounds heard in all four quadrants and there is no organomegaly palpated. Musculoskeletal: There is no back tenderness noted. Extremities are non-tender with full range of motion. There is good capillary refill. There is no peripheral edema or calf tenderness elicited. Neurological: Patient is alert and oriented to person, place and time. Psychiatric: The patient has an appropriate affect and does not exhibit any anxiety or depression. Triage Information Reviewed: Yes Vital Signs On Initial Exam: Initial Vitals Temp Pulse Resp BP Pulse Ox 96.9 F 65 16 162/81 98 03/16/18 11:31 03/16/18 11:31 03/16/18 11:31 03/16/18 11:31 03/16/18 11:31 Vital Signs Reviewed: Yes Diagnostics - Vital Signs Vital Signs Temp Pulse Resp BP Pulse Ox 03/16/18 11:31 96.9 F 65 16 162/81 98 - Laboratory Result Diagrams: 03/16/18 12:56 03/16/18 12:56 Lab Statement: Any lab studies that have been ordered have been reviewed, and results considered in the medical decision making process. - CT Abdomen/Pelvis CT CT Interpretation: No Acute Changes - IMPRESSION: No abnormal masses or fluid collections are identified. No hydronephrosis is noted in the left kidney. Left uretr is normal. Dr. Jenkins has reviewed this radiology report. CT Interpretation Completed By: Radiologist Abdominal Pain Fem Course/Dx - Course Course Of Treatment: Ms. Xiong presented complaining of day or so of left lower quadrant pain. She is concerned that she has diverticulitis as she is aware of having diverticulosis. Labs and imaging were both WNL and I'm not sure of the etiology of her pain. I recommended symptomatic treatment and follow-up. - Diagnoses Provider Diagnoses: Abdominal pain Discharge - Sign-Out/Discharge Documenting (check all that apply): Patient Departure - Discharge - Discharge Plan Condition: Stable Disposition: HOME Prescriptions: traMADol TAB* [Ultram*] 50 mg PO Q6HR PRN #20 tab MDD 4 PRN Reason: Pain Patient Education Materials: Abdominal Pain (ED) Referrals: Charmaine Arita MD [Primary Care Provider] - Jarrett Butcher MD [Medical Doctor] - Additional Instructions: Please follow up with [facility]. RETURN TO THE ED FOR ANY WORSENING SYMPTOMS. - Billing Disposition and Condition Condition: STABLE Disposition: Home
[2018-03-16 13:06] LABS: Urine Appearance Clear; Urine Blood Negative (Negative); Urine Color Yellow; Urine Ketones Negative (Negative); Urine Protein Negative (Negative); Urine Specific Gravity 1.023 (1.010-1.030); Urine Urobilinogen Negative (Negative)
[2018-03-16 13:10] LABS: ABS Basophils 0 10^3/ul (0-0.2); ABS Eosinophils 0.1 10^3/ul (0-0.6); ABS Lymphocytes 2.3 10^3/ul (1.0-4.8); ABS Monocytes 0.4 10^3/ul (0-0.8); ABS Neutrophils 3.5 10^3/ul (1.5-7.7); ABS Nucleated RBC 0 10^3/ul; Eosinophil % 0.9 % (0-6); Hematocrit 43 % (35-47); Hemoglobin 13.9 g/dl (12.0-16.0); Lymphocyte % 37.4 % (25-47); Mean Corpuscular HGB Conc 33 g/dl (31-36); Mean Corpuscular Hemoglobin 28 pg (27-31); Mean Corpuscular Volume 86 fL (80-97); Mean Platelet Volume 8.7 um3 (7.4-10.4); Nucleated Red Blood Cells % 0.1; Platelet Count 204 10^3/ul (150-450); Red Blood Count 4.93 10^6/ul (4.00-5.40); Red Cell Distribution Width 14 % (10.5-15); White Blood Count 6.3 10^3/ul (3.5-10.8)
[2018-03-16 13:32] LABS: EGFR Non-African American 99.4 (>60)
[2018-03-16] MEDS ORDERED: HYDROcodone/ACETAMIN 5-325 MG* 1 TAB PO ONE (13:50)
--- NOTE | 2018-03-16 13:51 | RAD ---
Sedation: Left flank pain CT of the abdomen and pelvis was performed without oral or IV contrast demonstration. Coronal and sagittal reconstructed images were obtained. The lung bases demonstrate no pleural fluid, nodules or masses. Cardiomegaly is noted. The liver is normal in size. Low density lesion in the left lobe of liver likely representing cysts. No other focal lesions or intrahepatic ductal dilatation is noted. The spleen is normal in size. The pancreas demonstrates no mass or pancreatic ductal dilatation. No adrenal lesions are noted. The kidneys demonstrate no hydronephrosis. No retroperitoneal lymphadenopathy is noted. CT of pelvis demonstrates diverticulosis without definite evidence of diverticulitis. No hernias are noted. The urinary bladder is partially collapsed. There is a periumbilical hernia containing omentum. IMPRESSION: No abnormal masses or fluid collections are identified. No hydronephrosis is noted in the left kidney. Left ureter is normal.
[2018-03-16 15:09] VITALS: BP 145/71
== END 2018-03-16 15:08 | disposition home or self-care (01) ==
LOC: ED 11:30
DX: R10.32 Left lower quadrant pain (principal); K57.90 Diverticulosis of intestine, part unspecified, without perforation or abscess without bleeding; K42.9 Umbilical hernia without obstruction or gangrene; I51.7 Cardiomegaly; Z90.49 Acquired absence of other specified parts of digestive tract; Z90.710 Acquired absence of both cervix and uterus; Z80.0 Family history of malignant neoplasm of digestive organs
CPT/HCPCS: 36415; 74176; 80053; 81003; 83605; 83690; 85025; 86140; 99283

== ENCOUNTER 2018-10-02 17:18 | Emergency (ER) | payer BC ==
--- OUTSIDE RECORDS SUMMARY | 2018-10-02 17:30 | XMS REPORT | Continuity of Care Document ---
:1955 External Reference #:[id number] Author Name Janet Mike Care Team Providers Name Role Phone Charmaine Arita MD Care Team Information Group Contract Analyst Unavailable Charmaine Arita MD Primary Care Physician Unavailable Payers Type Date Identification Numbers Payment Provider Subscriber Policy Number: [id number] [employer] [place] PayID: [id number] [address] [address] [place] [address] Advance Directives Description No Information Available Problems Date Description Provider Status Onset: 12/09/2015 [...] Family History Date Family Member(s) Problem(s) Comments : (age 42 Father due to Suicide Years) : (age 73 Mother due to Colon Years) Cancer Mother Cancer First Brother Kidney Disease First Sister due to () - age 68 Septicemia First Sister Kidney Disease : (age 63 Paternal Grandmother due to Dementia Years) : (age 67 Maternal Grandfather due to Diabetes Years) : (age 89 Maternal Grandmother due to Old-Age Years) Social History Type Date Description Comments Sex Unknown Marital Status Lives With Occupation Retired Tobacco Use Start: Unknown Never Smoked Cigarettes Smoking Status Reviewed: 07/22/18 Never Smoked Cigarettes ETOH Use Currently consumes alcohol Weekends Tobacco Use Start: Unknown Patient denies history of smoking Recreational Drug Use Denies Drug Use Exercise Type/Frequency Does not exercise Allergies, Adverse Reactions, Alerts Description No Known Drug Allergies Medications Medication Date Status Form Strength Qnty SIG Indications Ordering Provider Ibuprofen 200 Active Tablets 200mg 90tabs 1-2 tabs Gloria, 018 by mouth Andras, three M.D. times a day as needed Vitamin D3 Active Tablets 5000Unit 180tab 2 By Gloria 017 s Mouth Andras, Every M.D. Day Valacyclovir Active Tablets 1gm 4tabs 2 gm by Gloria, HCL 000 mouth Andras, every 12 M.D. hours x 2 doses as needed cold sores Celexa Active Tablets 20mg 1 by Unknown 000 mouth every day Amoxicillin Hx Tablets 500mg 30tabs take 1 J01.90 Kevin Castro - tablet Andras, daily 3 M.D. 017 times a day for [address] Hx Tablets DR 375mg 60tabs 1 tablet Gloria, 017 - by mouth Andras, twice a M.D. 018 day as needed for pain No Active Hx Unknown Medications 017 - [address] Hx Tablets DR 375mg 30tabs 1 tablet M17.12 Gloria, 017 - by mouth Andras, twice a M.D. 017 day Meloxicam Hx Tablets 15mg 30tabs 1 by [place], 016 - mouth Lenny, every M.D. 017 day c food Phentermine HCL Hx Capsules 37.5mg 30caps 1 tablet Gloria, 000 - by mouth Andras, every M.D. 016 day Atorvastatin 0 Hx Tablets 10mg 1 by Unknown Calcium 000 - mouth every 017 day Valacyclovir 0 Hx Tablets 1gm 1 by Unknown HCL 000 - mouth three 017 times a day as needed Co Q-10 0 Hx Capsules 100mg 1 by Unknown 000 - mouth every 017 day Vitamin D2 0 Hx Tablets 2000Unit 1 by Unknown 000 - mouth every 017 day Immunizations Description No Information Available Vital Signs Date Vital Result Comment 12/15/2017 2:02pm BP Systolic Sitting Right Arm 140 mmHg BP Diastolic Sitting Right Arm 80 mmHg Body Temperature 97.7 F Heart Rate 75 /min Respiratory Rate 18 /min Height 63 inches 5'3" Weight 270.00 lb BMI (Body Mass Index) 47.8 kg/m2 BSA (Body Surface Area) 2.20 m2 [place] body weight in kilograms 52 kg O2 % BldC Oximetry 95 % Ra 10/27/2017 11:13am BP Systolic 143 mmHg BP Diastolic 93 mmHg Body Temperature 97.5 F Heart Rate 89 /min Respiratory Rate 16 /min O2 % BldC Oximetry 95 % Pain Level 5 rt shoulder 10/14/2017 10:27am BP Systolic Sitting Right Arm 155 mmHg BP Diastolic Sitting Right Arm 85 mmHg Heart Rate 73 /min Height 63 inches 5'3" Weight 273.00 lb BMI (Body Mass Index) 48.4 kg/m2 BSA (Body Surface Area) 2.21 m2 [place] body weight in kilograms 52 kg O2 % BldC Oximetry 92 % ra 06/16/2017 11:24am BP Systolic Sitting Right Arm 149 mmHg lower arm BP Diastolic Sitting Right Arm 89 mmHg lower arm Body Temperature 98.6 F Heart Rate 80 /min Respiratory Rate 24 /min Weight 267.00 lb O2 % BldC Oximetry 92 % ra 03/24/2017 9:46am BP Systolic Sitting Left Arm 140 mmHg BP Diastolic Sitting Left Arm 75 mmHg Body Temperature 98.2 F Heart Rate 88 /min Respiratory Rate 14 /min Height 62.5 inches 5'2.50" Weight 263.25 lb BMI (Body Mass Index) 47.4 kg/m2 BSA (Body Surface Area) 2.16 m2 [place] body weight in kilograms 51 kg O2 % BldC Oximetry 96 % 12/19/2016 1:06pm BP Systolic 138 mmHg BP Diastolic 70 mmHg Heart Rate 78 /min Respiratory Rate 16 /min Height 62.5 inches 5'2.50" Weight 265.00 lb BMI (Body Mass Index) 47.7 kg/m2 BSA (Body Surface Area) 2.17 m2 O2 % BldC Oximetry 97 % 12/04/2016 8:43am BP Systolic Sitting Right Arm 132 mmHg BP Diastolic Sitting Right Arm 72 mmHg Height 62.5 inches 5'2.50" Weight 262.50 lb BMI (Body Mass Index) 47.2 kg/m2 BSA (Body Surface Area) 2.16 m2 04/16/2016 10:17am BP Systolic Sitting Left Arm 138 mmHg BP Diastolic Sitting Left Arm 83 mmHg Heart Rate 76 /min Height 62.5 inches 5'2.50" Weight 262.00 lb BMI (Body Mass Index) 47.2 kg/m2 BSA (Body Surface Area) 2.16 m2 [place] body weight in kilograms 51 kg 01/10/2016 12:59pm BP Systolic 130 mmHg BP Diastolic 80 mmHg Heart Rate 76 /min Height 62.5 inches 5'2.50" Weight 252.00 lb BMI (Body Mass Index) 45.4 kg/m2 BSA (Body Surface Area) 2.12 m2 12/05/2015 10:16am BP Systolic 142 mmHg BP Diastolic 83 mmHg Heart Rate 83 /min Height 62.5 inches 5'2.50" Weight 250.00 lb BMI (Body Mass Index) 45.0 kg/m2 BSA (Body Surface Area) 2.11 m2 Results Test Date Facility Test Result H/L Range Note Rapid Influenza 11/04/2017 [facility] Influenza A NEGATIVE Negative 1 A & B Molecular [phone] Molecular Influenza B Molecular POSITIVE Abnormal Negative Ua RFX Micro & Culture 10/23/2017 [facility] Urine Color YELLOW Yellow 2 II [address] [place] [address] [phone] Urine Clarity TURBID Clear Urine Glucose - Dipstick NEGATIVE mg/dL Negative Urine Bilirubin - Dipstick NEGATIVE Negative Urine Ketone NEGATIVE mg/dL Negative Urine Specific [place] 1.025 N 1.010-1.030 Urine Blood NEGATIVE Negative Urine PH 6.0 Low 6.5-7.5 Urine Protein - Dipstick NEGATIVE mg/dL Negative Urine Urobilinogen - Dipstick 0.2 E.U./dL N 0.2-1.0 Urine Nitrite - Dipstick NEGATIVE Negative Urine Leuk Esterase NEGATIVE Negative Source: URINE, CLEAN CAT <SEE NOTE> 3 Laboratory test 10/08/2017 [facility] LDL Cholesterol 154 mg/dL 4 finding [phone] Direct TSH (Thyroid Stimulating Horm) 4.60 mcIU/mL N 0.34-5.60 Urinalysis Profile 10/08/2017 [facility] Urine Color Shara [phone] Urine Appearance Cloudy Urine Specific [place] 1.021 N 1.010-1.030 Urine pH 6.0 N 5-9 Urine Urobilinogen Negative Negative Urine Ketones Negative Negative Urine Protein Negative Negative Urine Leukocytes Negative Negative Urine Blood 1+ Abnormal Negative Urine Nitrite Negative Negative Urine Bilirubin Negative Negative Urine Glucose Negative Negative Urine White Blood Cell Trace(0-5/hpf) Absent Urine Red Blood Cell 1+(3-5/hpf) Abnormal Absent Urine Bacteria Absent Absent Urine Squamous Epithelial Cell Present Abnormal Absent Laboratory test 10/08/2017 [facility] Vitamin D 23.7 ng/mL N 20-50 finding [phone] Total 25(Oh) Hemoglobin A1c 5.7 % High 4.0-5.6 5 HDL Cholesterol 54.3 mg/dL 6 Triglycerides 118 mg/dL 7 Comprehensive 10/08/2017 [facility] Sodium 138 mmol/ L N 133-145 Metabolic Panel [phone] Potassium 4.4 mmol/L N 3.5-5.0 Chloride 105 mmol/L N 101-111 Co2 Carbon Dioxide 25 mmol/L N 22-32 Anion Gap 8 mmol/L N 2-11 Glucose 105 mg/dL High 70-100 Blood Urea Nitrogen 22 mg/dL N 6-24 Creatinine 0.67 mg/dL N 0.51-0.95 BUN/Creatinine Ratio 32.8 High 8-20 Calcium 9.3 mg/dL N 8.6-10.3 Total Protein 6.2 g/dL Low 6.4-8.9 Albumin 3.8 g/dL N 3.2-5.2 Globulin 2.4 g/dL N 2-4 Albumin/Globulin Ratio 1.6 N 1-3 Total Bilirubin 0.50 mg/dL N 0.2-1.0 Alkaline Phosphatase 81 U/L N 34-104 Alt 23 U/L N 7-52 Ast 11 U/L Low 13-39 Egfr Non- 89.2 >60 Egfr 114.7 >60 8 CBS W/Automated 10/08/2017 [facility] White Blood 5.6 10^3/uL N 3.5-10.8 Diff [phone] Count Red Blood Count 4.90 10^6/uL N 4.0-5.4 Hemoglobin 14.0 g/dL N 12.0-16.0 Hematocrit 42 % N 35-47 Mean Corpuscular Volume 85 fL N 80-97 Mean Corpuscular Hemoglobin 29 pg N 27-31 Mean Corpuscular HGB Conc 34 g/dL N 31-36 Red Cell Distribution Width 14 % N 10.5-15 Platelet Count 206 10^3/uL N 150-450 Mean Platelet Volume 9 um3 N 7.4-10.4 Abs Neutrophils 3.1 10^3/uL N 1.5-7.7 Abs Lymphocytes 2.0 10^3/uL N 1.0-4.8 Abs Monocytes 0.3 10^3/uL N 0-0.8 Abs Eosinophils 0.1 10^3/uL N 0-0.6 Abs Basophils 0.1 10^3/uL N 0-0.2 Abs Nucleated RBC 0 10^3/uL Granulocyte % 55.4 % N 38-83 Lymphocyte % 36.2 % N 25-47 Monocyte % 5.8 % N 1-9 Eosinophil % 1.5 % N 0-6 Basophil % 1.1 % N 0-2 Nucleated Red Blood Cells % 0 Laboratory test 06/15/2017 [facility] Thyroid Stim 3.90 uIU/mL N 0.30-4.20 [address] Hormone [place], [place] [id number] [phone] Free T3 2.50 pg/mL N 2.18-3.98 Free T4 0.91 ng/dL N 0.76-1.46 Laboratory 06/15/2017 [facility] Vitamin B1 179.2 66.5-200.0 10 test finding [address] (Thiamine),WB nmol/L [place], [place] [id number] [phone] Laboratory 05/29/2017 [facility] Hemoglobin A1c 5.7 % N Less than 6.0 11 test finding [phone] LDL Cholesterol Direct 141 mg/dL N 12 Folate 7.83 ng/mL N >3.99 Vitamin B12 561 pg/mL N 180-914 13 Laboratory test 05/29/2017 [facility] Magnesium 1.8 mg/dL Low 1.9-2.7 finding [phone] CMP Panel (14 05/29/2017 [facility] Sodium 139 mmol/ L N 133-145 Test) [phone] Potassium 4.3 mmol/L N 3.5-5.0 Chloride 107 mmol/L N 101-111 Co2 Carbon Dioxide 26 mmol/L N 22-32 Anion Gap 6 mmol/L N 2-11 Glucose 100 mg/dL N 70-100 Blood Urea Nitrogen 26 mg/dL High 6-24 Creatinine 0.71 mg/dL N 0.51-0.95 BUN/Creatinine Ratio 36.6 High 8-20 Calcium 9.1 mg/dL N 8.6-10.3 Total Protein 6.1 g/dL Low 6.4-8.9 Albumin 3.6 g/dL N 3.2-5.2 Globulin 2.5 g/dL N 2-4 Albumin/Globulin Ratio 1.4 N 1-3 Total Bilirubin 0.50 mg/dL N 0.2-1.0 Alkaline Phosphatase 82 U/L N 34-104 Alt 14 U/L N 7-52 Ast 10 U/L Low 13-39 Egfr Non- 83.7 N >60 Egfr 107.6 N >60 14 CBC W/Auto 05/29/2017 [facility] White Blood 5.7 10^3 /uL N 3.5-10.8 Diff & PLT [phone] Count Red Blood Count 4.85 10^6/uL N 4.0-5.4 Hemoglobin 13.8 g/dL N 12.0-16.0 Hematocrit 42 % N 35-47 Mean Corpuscular Volume 86 fL N 80-97 Mean Corpuscular Hemoglobin 28 pg N 27-31 Mean Corpuscular HGB Conc 33 g/dL N 31-36 Red Cell Distribution Width 14 % N 10.5-15 Platelet Count 199 10^3/uL N 150-450 Mean Platelet Volume 9 um3 N 7.4-10.4 Abs Neutrophils 3.2 10^3/uL N 1.5-7.7 Abs Lymphocytes 2.0 10^3/uL N 1.0-4.8 Abs Monocytes 0.3 10^3/uL N 0-0.8 Abs Eosinophils 0.1 10^3/uL N 0-0.6 Abs Basophils 0.1 10^3/uL N 0-0.2 Abs Nucleated RBC 0 10^3/uL N Granulocyte % 56.1 % N 38-83 Lymphocyte % 36.0 % N 25-47 Monocyte % 5.5 % N 1-9 Eosinophil % 1.5 % N 0-6 Basophil % 0.9 % N 0-2 Nucleated Red Blood Cells % 0 N Laboratory test 05/29/2017 [facility] Triglycerides 102 mg/dL N 15 finding [phone] Laboratory test 05/29/2017 [facility] Vitamin D Total 42.4 ng/mL N 20-50 finding [phone] 25(Oh) HDL Cholesterol 51.4 mg/dL N 16 Laboratory test 12/11/2016 [facility] Triglycerides 109 mg/dL N 17 finding [phone] LDL Cholesterol Direct 155 mg/dL N 18 Anti Nuclear Antibody 0.6 U N 19 Laboratory test 12/11/2016 [facility] Vitamin D 23.3 ng/mL Low 30-50 finding [phone] Total 25(Oh) Uric Acid 4.2 mg/dL N 2.3-6.6 Rheumatoid Factor <15 IU/mL N <15 20 Creatine Kinase 55 U/L N 10-223 HDL Cholesterol 49.0 mg/dL N 21 Laboratory test 12/11/2016 [facility] Magnesium 1.9 mg/dL N 1.9-2.7 finding [phone] Urinalysis Profile 12/11/2016 [facility] Urine Color Yellow N [phone] Urine Appearance Clear N Urine Specific [place] 1.028 N 1.010-1.030 Urine pH 5.0 N 5-9 Urine Urobilinogen Negative N Negative Urine Ketones Negative N Negative Urine Protein Negative N Negative Urine Leukocytes Negative N Negative Urine Blood Negative N Negative Urine Nitrite Negative N Negative Urine Bilirubin Negative N Negative Urine Glucose Negative N Negative Laboratory test 12/11/2016 [facility] Urine Culture SEE RESULT 22 finding [phone] BELOW CBS W/Automated 12/11/2016 [facility] White Blood 5.6 10^3/uL N 3.5-10 Diff [phone] Count .8 Red Blood Count 4.87 10^6/uL N 4.0-5.4 Hemoglobin 13.7 g/dL N 12.0-16.0 Hematocrit 41 % N 35-47 Mean Corpuscular Volume 85 fL N 80-97 Mean Corpuscular Hemoglobin 28 pg N 27-31 Mean Corpuscular HGB Conc 33 g/dL N 31-36 Red Cell Distribution Width 14 % N 10.5-15 Platelet Count 201 10^3/uL N 150-450 Mean Platelet Volume 9 um3 N 7.4-10.4 Abs Neutrophils 2.9 10^3/uL N 1.5-7.7 Abs Lymphocytes 2.3 10^3/uL N 1.0-4.8 Abs Monocytes 0.3 10^3/uL N 0-0.8 Abs Eosinophils 0.1 10^3/uL N 0-0.6 Abs Basophils 0 10^3/uL N 0-0.2 Abs Nucleated RBC 0 10^3/uL N Granulocyte % 51.5 % N 38-83 Lymphocyte % 40.1 % N 25-47 Monocyte % 5.8 % N 1-9 Eosinophil % 1.9 % N 0-6 Basophil % 0.7 % N 0-2 Nucleated Red Blood Cells % 0 N Comprehensive 12/11/2016 [facility] Sodium 140 mmol/ L N 133-145 Metabolic Panel [phone] Potassium 4.2 mmol/L N 3.5-5.0 Chloride 107 mmol/L N 101-111 Co2 Carbon Dioxide 26 mmol/L N 22-32 Anion Gap 7 mmol/L N 2-11 Glucose 102 mg/dL High 70-100 Blood Urea Nitrogen 30 mg/dL High 6-24 Creatinine 0.70 mg/dL N 0.51-0.95 BUN/Creatinine Ratio 42.9 High 8-20 Calcium 9.2 mg/dL N 8.6-10.3 Total Protein 6.2 g/dL Low 6.4-8.9 Albumin 3.8 g/dL N 3.2-5.2 Globulin 2.4 g/dL N 2-4 Albumin/Globulin Ratio 1.6 N 1-3 Total Bilirubin 0.50 mg/dL N 0.2-1.0 Alkaline Phosphatase 85 U/L N 34-104 Alt 16 U/L N 7-52 Ast 12 U/L Low 13-39 Egfr Non- 85.1 N >60 Egfr 109.4 N >60 23 LDL Cholesterol 05/20/2016 [facility] Triglycerides 112 mg/dL N 24 Profile [phone] Cholesterol 249 mg/dL N 25 HDL Cholesterol 52.1 mg/dL N 26 LDL Cholesterol 175 mg/dL N 27 Laboratory test 05/20/2016 [facility] Vitamin D 23.1 ng/mL Low 30-50 finding [phone] Total 25(Oh) Creatine Kinase 44 U/L N 10-223 Liver Function 05/20/2016 [facility] Total Protein 6.3 g/dL Low 6.4-8.9 Tests [phone] Albumin 3.8 g/dL N 3.2-5.2 Globulin 2.5 g/dL N 2-4 Albumin/Globulin Ratio 1.5 N 1-3 Total Bilirubin 0.50 mg/dL N 0.2-1.0 Direct Bilirubin 0.10 mg/dL N 0.03-0.18 Indirect Bilirubin 0.4 mg/dL N 0.3-1.0 Alkaline Phosphatase 80 U/L N 34-104 Alt 16 U/L N 7-52 Ast 10 U/L Low 13-39 Laboratory test 05/20/2016 [facility] TSH (Thyroid 4.20 N 0.34-5.60 finding [phone] Stimulating mcIU/mL Horm) LDL Cholesterol Direct 168 mg/dL N 28 Laboratory test 01/09/2016 [facility] Glucose 91 mg/ dL N 70-100 finding [phone] Alt 20 U/L N 7-52 Comprehensive 01/09/2016 [facility] Sodium 139 mmol/ L N 133-145 Metabolic Panel [phone] Potassium 4.4 mmol/L N 3.5-5.0 Chloride 104 mmol/L N 101-111 Co2 Carbon Dioxide 30 mmol/L N 22-32 Anion Gap 5 mmol/L N 2-11 Blood Urea Nitrogen 20 mg/dL N 6-24 Creatinine 0.72 mg/dL N 0.51-0.95 BUN/Creatinine Ratio 27.8 High 8-20 Calcium 9.4 mg/dL N 8.6-10.3 Total Protein 6.6 g/dL N 6.4-8.9 Albumin 4.1 g/dL N 3.2-5.2 Globulin 2.5 g/dL N 2-4 Albumin/Globulin Ratio 1.6 N 1-3 Total Bilirubin 0.60 mg/dL N 0.2-1.0 Alkaline Phosphatase 85 U/L N 34-104 Ast 12 U/L Low 13-39 Egfr Non- 82.6 N >60 Egfr 106.3 N >60 29 Laboratory test 01/09/2016 [facility] Vitamin D 22.5 ng/mL Low 30-50 finding [phone] Total 25(Oh) LDL Cholesterol Direct 164 mg/dL N 30 TSH (Thyroid Stimulating Horm) 4.56 ?IU/mL N 0.34-5.60 Free T3 3.20 pg/mL N 2.5-3.9 Free T4 0.73 ng/dL N 0.61-1.12 Laboratory test 01/09/2016 [facility] Homocysteine 10 mcmol/L N 31 finding [phone] Urine Screen 01/09/2016 [facility] Urine Color Yellow N [phone] Urine Appearance Cloudy N Urine Specific [place] 1.017 N 1.010-1.030 Urine pH 6.0 N 5-9 Urine Urobilinogen Negative N Negative Urine Ketones Negative N Negative Urine Protein Negative N Negative Urine Leukocytes Negative N Negative Urine Blood Negative N Negative Urine Nitrite Negative N Negative Urine Bilirubin Negative N Negative Urine Glucose Negative N Negative Laboratory test 01/09/2016 [facility] Creatine Kinase 40 U/L N 10-223 finding [phone] 1 Er Tech: [id number] R39.14 3 URINE, CLEAN CATCH 4 Desirable: <100 Near Optimal: 100-129 Borderline High: 130-159 High: 160-189 Very High: >189 5 Therapeutic target for the treatment of diabetes mellitus patients is <7% HBA1C, and in selective patients <6.0%. Please refer to [place] Diabetes Association diabetic care guidelines for further [...] developed and its performance characteristics determined by [employer]. It has not been cleared or approved by the Food and Drug Administration. Performed at: [facility] [address] [id number] Internal Audit Director: Monty Blackburn MD, Phone: [phone] Therapeutic target for the treatment of diabetes Mellitus patients is <7% HBA1C, and in selective patients <6.0%.Please refer to [place] Diabetes Association Diabetic care guidelines for further [...] REFERENCE VALUE <=1.0 (Negative) Test Performed by: [address] [id number] Test Performed by: [address] [address] 21 Low <40 Desirable: 40-60 High: >60 22 SEE RESULT BELOW Name: YADIRA GREEN : [address]: Shawna Castro MD Acct: [id number] Unit: [id number] AGE: 61 Location: [facility] Re12/11/16 SEX: F Status: REG REF SPEC: [id number] RICHIE: 12/11/16-[address] [facility] [address]: Shawna Castro MD REQ: [id number] RECD: 12/11/16 STATUS: COMP _ SOURCE: URINE SPDESC: ORDERED: Urine Culture QUERIES: Urine Source: Clean Catch Procedure Result Reported Site Urine Culture Final 12/12/16- 1354 ML No growth of clinically significant organisms * ML - MAIN LAB (PSC1) . END OF REPORT * ML=Testing performed at Main Lab DEPARTMENT OF PATHOLOGY, [address] [place] [address] Mario Martinez M.D. Director [facility] # [id number] Because ethnic data is not always [...] REFERENCE VALUE <=13 (Fasting) Test Performed by: [place] [id number] Machine Fur Cleaner: Monty Boyle II, M.D., Ph.D. Procedures Date Code Description Status 07/22/2018 52067 Eye Exam Est Patient Comprehensive Completed 09/07/2017 43017540 Mammogram Completed 07/16/2017 64304 Eye Exam New Patient Comprehensive Completed 04/16/2016 88623 Radiology, Knee 3 Views Completed 04/16/2016 62647 Radiology, Knee 3 Views Completed 07/09/2015 [id number] Mammogram Completed 09/07/2014 [id number] Colonoscopy Completed 04/10/2014 [id number] Colonoscopy Completed Encounters Type Date Location Provider Dx Diagnosis Office Visit 12/15/2017 Primary Care Allison Li3.1 Major depressive 2:00p Neal Huffman M.D. disorder, recurrent, moderate Office Visit 10/27/2017 Urology Luis Barillas, N39.46 Mixed incontinence 11:30a M.D. Office Visit 10/14/2017 Primary Care Shawna Csatro, Z79.899 Other senior care 10:40a Office M.D. (current) drug therapy E78.5 Hyperlipidemia, unspecified E55.9 Vitamin D deficiency, unspecified R03.0 Elevated blood-pressure reading, w/o diagnosis of htn R39.14 Feeling of incomplete bladder emptying R73.09 Other abnormal glucose Office Visit 06/16/2017 11:20a Primary Care Shawna Castro, H66.91 Otitis media, Office M.D. unspecified, right ear J01.90 Acute sinusitis, unspecified Z63.0 Problems in relationship with spouse or partner Office Visit 03/24/2017 9:40a Primary Care Shawna Castro, E66.9 Obesity, Office M.D. unspecified M17.12 Unilateral primary osteoarthritis, left knee R73.09 Other abnormal glucose E55.9 Vitamin D deficiency, unspecified Office Visit 12/19/2016 1:00p Primary Care Shawna Castro, M25.511 Pain in right Office M.D. 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 unspecified E55.9 Vitamin D deficiency, unspecified Z79.899 Other senior care (current) drug therapy E66.9 Obesity, unspecified Plan of Treatment 07/22/2018 - Shawn Henson MDH25.813 Combined forms of age-related cataract, bilateralComments:- approaching visual significance, left eye- provided updated rx at this time- if becomes bothersome, can consider ce, iol left eyeFollow up: 1 year examH04.123 Dry eye syndrome of bilateral lacrimal glandsComments:- please consider:- warm compresses- artificial tears both eyes: can use 3-6 times daily- consider ointment at night - lubricating ointments include lacri- lube, systane, refresh pm- can consider punctal occlusion or zzkpvyqfA92.31 Benign neoplasm of right choroidComments:- respects tfsom- will follow
[2018-10-02 18:13] VITALS: BP 134/56
[2018-10-02] MEDS ORDERED: Amoxicillin PO (*) 500 MG CAP PO ONE (19:34)
[2018-10-02] MEDS ORDERED: predniSONE TAB* 20 MG PO ONE (19:34)
[2018-10-02] MEDS ORDERED: Albuterol HFA INHALER* 8 gm MDI INH ONE (19:34)
--- NOTE | 2018-10-02 19:34 | UC ---
Respiratory Complaint HPI - HPI Summary HPI Summary: Congestion off/on x last several months. Cough with coughing fits x 1 week. Now with increased congestion with fevers/ chills and sinus pain. - History of Current Complaint Chief Complaint: UCGeneralIllness Stated Complaint: SINUS,COUGH,FEVER Time Seen by Provider: 10/02/18 19:21 Hx Obtained From: Patient Hx Last Menstrual Period: ~1999 Onset/Duration: Sudden Onset, Lasting Weeks - 1, Worse Since - last 2 days Timing: Constant Severity Initially: Mild Severity Currently: Moderate Pain Intensity: 4 Character: Cough: Nonproductive Aggravating Factors: Deep Breaths, Recumbent Position Associated Signs And Symptoms: Positive: Chills, Wheezing, URI, Nasal Congestion , Sinus Discomfort Related History: Seasonal Allergies - Allergies/Home Medications Allergies/Adverse Reactions: Allergies Allergy/AdvReac Type Severity Reaction Status Date / Time No Known Allergies Allergy Verified 10/02/18 18:05 Home Medications: Home Medications Ibuprofen TAB* [Advil TAB*] 400 mg PO Q6H PRN 10/02/18 [History Confirmed ] PMH/Surg Hx/FS Hx/Imm Hx Endocrine History: Thyroid Disease - Surgical History Surgical History: Yes Surgery Procedure, Year, and Place: hysterectomy,cholecystectomy Bilateral arms and hands ganglion cystsT&Aear growth removal. TUBAL LIGATION - Family History Known Family History: Positive: Hypertension Negative: Cardiac Disease Family History: FHx of colon cancer. - Social History Occupation: Retired Lives: With Family Alcohol Use: Occasionally Substance Use Type: None Smoking Status (MU): Never Smoked Tobacco Have You Smoked in the Last Year: No - Immunization History Most Recent Tetanus Shot: UNKNOWN Review of Systems All Other Systems Reviewed And Are Negative: Yes Constitutional: Positive: Fever, Chills ENT: Positive: Sore Throat, Sinus Pain/Tenderness Respiratory: Positive: Shortness Of Breath, Cough Physical Exam Triage Information Reviewed: Yes Appearance: No Pain Distress, Ill-Appearing, Obese Vital Signs: Initial Vital Signs Temp 97.9 F 10/02/18 18:09 Pulse 73 10/02/18 18:09 Resp 20 10/02/18 18:09 BP 134/56 10/02/18 18:09 Pulse Ox 95 10/02/18 18:09 Vital Signs Reviewed: Yes ENT: Positive: Pharynx normal, Nasal congestion, TMs normal Neck exam: Normal Respiratory: Positive: Wheezing - expiratory wheeze with coughing Cardiovascular Exam: Normal Musculoskeletal Exam: Normal Neurological Exam: Normal Psychological Exam: Normal Skin Exam: Normal UC Diagnostic Evaluation - Laboratory O2 Sat by Pulse Oximetry: 95 Respiratory Course/Dx - Differential Dx/Diagnosis Differential Diagnosis/HQI/PQRI: Asthma, Lower Resp Infection, Sinusitis Provider Diagnosis: Upper respiratory infection, Sinusitis, Bronchospasm, acute Discharge - Sign-Out/Discharge Documenting (check all that apply): Patient Departure All imaging exams completed and their final reports reviewed: No Studies - Discharge Plan Condition: Stable Disposition: HOME Prescriptions: Amoxicillin PO (*) [Amoxicillin 875 MG (*)] 875 mg PO BID #20 tab predniSONE TAB* [Deltasone 20 MG TAB*] 60 mg PO DAILY #18 tab Patient Education Materials: Upper Respiratory Infection (ED), Wheezing (ED), Sinusitis (ED), Prednisone (By mouth), Amoxicillin (By mouth) Referrals: Charmaine Arita MD [Primary Care Provider] - - Billing Disposition and Condition Condition: STABLE Disposition: Home
== END 2018-10-02 20:12 | disposition home or self-care (01) ==
LOC: UCCORT 17:18
DX: J06.9 Acute upper respiratory infection, unspecified (principal); J32.9 Chronic sinusitis, unspecified; J98.01 Acute bronchospasm
CPT/HCPCS: 99213; A9270-GY; G0463; J7512

== ENCOUNTER 2018-12-04 15:23 | Emergency (ER) | payer BC ==
[2018-12-04 16:35] VITALS: BP 143/80
--- NOTE | 2018-12-04 17:16 | UC ---
Respiratory Complaint HPI - HPI Summary HPI Summary: 63 year old female here with URI symptoms for over one week along with vomiting and diarrhea for over 7 days. Reports vomiting and diarrhea subsided but cough continued. Reports cough with clear phlegm, no hemoptysis. Denies abdominal pain , urinary symptoms or any other complaints. Has been using bronchodilators with partial relief. Of note, she has been having more cough symptoms this winter and she was placed on abx three times. No other complaints. - History of Current Complaint Chief Complaint: UCRespiratory Stated Complaint: DIARRHEA,COUGH Time Seen by Provider: 12/04/18 16:44 Hx Obtained From: Patient Hx Last Menstrual Period: ~1999 Onset/Duration: Sudden Onset Timing: Constant Severity Initially: Severe Severity Currently: Mild Pain Intensity: 0 Character: Cough: Productive Aggravating Factors: Nothing Alleviating Factors: Bronchodilator Associated Signs And Symptoms: Positive: Dyspnea. Negative: Fever, Chills, Pleuritic Chest Pain, Wheezing, Hemoptysis, Dizziness, Calf Pain, Calf Swelling - Allergies/Home Medications Allergies/Adverse Reactions: Allergies Allergy/AdvReac Type Severity Reaction Status Date / Time No Known Allergies Allergy Verified 12/04/18 16:31 PMH/Surg Hx/FS Hx/Imm Hx Previously Healthy: Yes - Surgical History Surgical History: Yes Surgery Procedure, Year, and Place: hysterectomy,cholecystectomy Bilateral arms and hands ganglion cysts T&A. ear growth removal. TUBAL LIGATION - Family History Known Family History: Positive: Hypertension Negative: Cardiac Disease Family History: FHx of colon cancer. - Social History Alcohol Use: Occasionally Substance Use Type: None Smoking Status (MU): Never Smoked Tobacco Have You Smoked in the Last Year: No - Immunization History Most Recent Tetanus Shot: UNKNOWN Review of Systems All Other Systems Reviewed And Are Negative: Yes Constitutional: Positive: Chills Skin: Positive: Negative Respiratory: Positive: Shortness Of Breath, Cough Gastrointestinal: Positive: Vomiting, Diarrhea Physical Exam Triage Information Reviewed: Yes Appearance: Well-Appearing, No Pain Distress, Well-Nourished, Ill-Appearing Vital Signs: Initial Vital Signs Temp 36.3 C 12/04/18 16:32 Pulse 81 12/04/18 16:32 Resp 15 12/04/18 16:32 BP 143/80 12/04/18 16:32 Pulse Ox 95 12/04/18 16:32 ENT: Positive: Normal ENT inspection Neck exam: Normal Respiratory: Positive: Other: - crackles left upper lung field Cardiovascular Exam: Normal Abdominal Exam: Normal Musculoskeletal Exam: Normal Musculoskeletal: Positive: No Edema Skin Exam: Normal Diagnostics - Radiology No standard instances Radiology Interpretation Completed By: Radiologist Summary of Radiographic Findings: No pna. Obstructive pathology. Respiratory Course/Dx - Course Course Of Treatment: Patient reassured. Symptomatic meds. Recommended for outpatient pulm follow up with PFTS. - Differential Dx/Diagnosis Differential Diagnosis/HQI/PQRI: Bronchitis, Lower Resp Infection Provider Diagnosis: Cough Discharge - Sign-Out/Discharge Documenting (check all that apply): Patient Departure All imaging exams completed and their final reports reviewed: Yes - Discharge Plan Condition: Good Disposition: HOME Prescriptions: Benzonatate CAP* [Tessalon 100 MG CAP*] 100 mg PO TID PRN #20 cap PRN Reason: Cough Patient Education Materials: Chronic Cough (ED) Referrals: Charmaine Arita MD [Primary Care Provider] - - Billing Disposition and Condition Condition: GOOD Disposition: Home
== END 2018-12-04 17:34 | disposition home or self-care (01) ==
LOC: UCCORT 15:23
DX: R05 Cough (principal); R19.7 Diarrhea, unspecified; R11.10 Vomiting, unspecified; R06.02 Shortness of breath
CPT/HCPCS: 71046; 99212; G0463